=== PATIENT | female | born 1945 | race Caucasian/White ===

== ENCOUNTER → 2021-08-23 | Day surgery (SDC) | payer MEDICARE, OTHER ==
[~2021-08-23] MED LIST: Dextrose 5%-0.45% NaCl 1,000 ML IV SCH; Midazolam 1 MG/ML 2 ML SDV IV ONE; Midazolam 1 MG/ML 2 ML SDV ONE; fentaNYL 100 MCG/2 ML SDV IV ONE; fentaNYL 100 MCG/2 ML SDV ONE
--- NOTE | 2021-08-23 09:13 | PN ---
DATE: 08/23/2021 Under conscious sedation, esophagogastroduodenoscopy attempted. Could not pass the tip of the scope to visualize the areas planned on, so exam terminated. PLAN: Close observation. Vital signs as per protocol. Barium esophagogram including pill study and followup with x-ray report as to further management to be seen earlier if needed. MODL /[id number]
== END | disposition home or self-care (01) ==
LOC: MERGE 06:03 → DL.ENDO 06:03
PROVIDERS: ATTEND Internal Medicine Gastroenterology
DX: R13.10 Dysphagia, unspecified (principal); Z53.09 Procedure and treatment not carried out because of other contraindication; F41.1 Generalized anxiety disorder; F32.A Depression, unspecified; I10 Essential (primary) hypertension; E05.90 Thyrotoxicosis, unspecified without thyrotoxic crisis or storm; E78.5 Hyperlipidemia, unspecified; E66.09 Other obesity due to excess calories; E05.20 Thyrotoxicosis with toxic multinodular goiter without thyrotoxic crisis or storm
CPT/HCPCS: J2250; J3010; J7042; U0002